=== PATIENT | female | born 2000 | race African-American/Black ===

== ENCOUNTER 2018-11-14 07:05 | Emergency (ER) | payer OTHER ==
[~2018-11-14] VITALS: Ht 157.5 cm; Wt 59.0 kg
[~2018-11-14 07:05] MED LIST: NOHOMEMEDICATIONS
[2018-11-14] MEDS ORDERED: NAPROSYN500 MG PO (08:59)
[2018-11-14 09:00] VITALS: BP 137/50
== END 2018-11-14 09:00 | disposition home or self-care (01) ==
LOC: ER 07:05
DX: S20.212A Contusion of left front wall of thorax, initial encounter (principal); M54.2 Cervicalgia; Y04.0XXA Assault by unarmed brawl or fight, initial encounter; Y93.89 Activity, other specified; Y92.89 Other specified places as the place of occurrence of the external cause; Y99.8 Other external cause status